=== PATIENT | female | born 1990 | race Caucasian/White ===

== ENCOUNTER 2018-10-22 19:29 | Emergency (ER) | payer OTHER ==
[2018-10-22 19:43] VITALS: BP 124/80
[2018-10-22] MEDS ORDERED: TDAP ADULT 0.5 ML INJ (BOOSTRIX) IM ONE (19:49)
--- NOTE | 2018-10-22 19:57 | EDPHY ---
H & P Time Seen by Provider: 10/22/18 19:43 HPI/ROS: CHIEF COMPLAINT: Possible needlestick HISTORY OF PRESENT ILLNESS: 28-year-old immunocompetent healthy female works as a leasing representative's deputy at the [employer] sustained a possible needle stick from an insulin syringe to her left thenar eminence. She is unsure whether she was stuck or not but does note itching after going to this individuals. Her tetanus is out-of-date. Believes that her hepatitis a and B vaccination up-to- date. She denies history of hepatitis-C or HIV exposure. Unknown source patient health status PHYSICAL EXAM (Prior to examination, patient consented to physical exam, hands were washed and my usual and customary physical exam procedures followed) 1) GENERAL: Well-developed, well-nourished, alert and oriented. Appears to be in no acute distress. 2) HEAD: Normocephalic 3) HEENT: sclera anicteric 4) LUNGS: Breathing comfortably. 5) SKIN: Left hand examined, no visible lesions, no puncture wound, no erythema, no tenderness. No signs of trauma. Smoking Status: Never smoked Constitutional: Initial Vital Signs Temperature (C) 36.8 C 10/22/18 19:34 Heart Rate 88 10/22/18 19:34 Respiratory Rate 16 10/22/18 19:34 Blood Pressure 124/80 H 10/22/18 19:34 O2 Sat (%) 98 10/22/18 19:34 O2 Delivery Mode Room Air Allergies/Adverse Reactions: codeine Allergy (Verified 10/22/18 19:35) Home Medications: Medication Instructions Recorded Control 10/22/18 MDM/Departure - MDM ED Course/Re-evaluation: The source [facility] is currently [facility] the [facility] and [facility] staff will more than likely have the patient tested tonight or tomorrow. Patient will follow up with her work comp provider. Baseline laboratory studies have been drawn the patient. At this time will hold off on post exposure prophylaxis. Care of patient under supervision of secondary supervising physician Dr Picknes - Fabrice Disposition: Home, Routine, Self-Care Clinical Impression: Needlestick injury accident with exposure to body fluid Condition: Good Instructions: Puncture Wound (ED) Additional Instructions: Return to the ER if you develop redness, swelling, discharge, warmth to the wound, red streaks going up your arm or any other symptoms that concern you. Stand Alone Forms: Work Comp Follow Up Referrals: Follow-up, with your work comp provider in 1-3 days [Other] - As per Instructions
[2018-10-22 21:22] LABS: HEPATITIS B SURFACE ANTIGEN NEGATIVE (NEGATIVE)
[2018-10-22 21:40] LABS: HEPATITIS C ANTIBODY TOTAL NEGATIVE (NEGATIVE); HIV TYPE 1 AND 2 NEGATIVE (NEGATIVE)
== END 2018-10-22 20:31 | disposition home or self-care (01) ==
DX: Z77.21 Contact with and (suspected) exposure to potentially hazardous body fluids (principal); S61.432A Puncture wound without foreign body of left hand, initial encounter; Y92.89 Other specified places as the place of occurrence of the external cause; Y93.89 Activity, other specified; Y99.0 Civilian activity done for income or pay; Z23 Encounter for immunization
CPT/HCPCS: G0472